=== PATIENT | female | born 2000 | race Caucasian/White ===

== ENCOUNTER 2021-11-23 06:27 | Emergency (ER) | payer SELFPAY ==
[~2021-11-23] VITALS: Ht 170.2 cm; Wt 113.4 kg
[2021-11-23 06:30] VITALS: BP 127/61
--- NOTE | 2021-11-23 06:43 | NUR ---
Dr. Uribe examining patient.
--- NOTE | 2021-11-23 06:43 | NUR ---
DR GALLAGHER EXAMINING PT AT BEDSIDE
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
--- NOTE | 2021-11-23 06:43 | NUR ---
PT TAKEN TO BED 11
[2021-11-23 07:01] VITALS: BP 127/61
--- NOTE | 2021-11-23 07:01 | NUR ---
Patient discharged with v/s stable. Written and verbal after care instructions given and explained. Patient verbalized understanding. Ambulatory with steady gait. All questions addressed prior to discharge. Advised to follow up with PMD.
== END 2021-11-23 07:01 | disposition home or self-care (01) ==
LOC: MED 06:27
DX: S29.019A Strain of muscle and tendon of unspecified wall of thorax, initial encounter (principal); S00.03XA Contusion of scalp, initial encounter; S00.83XA Contusion of other part of head, initial encounter; S20.219A Contusion of unspecified front wall of thorax, initial encounter; Y04.2XXA Assault by strike against or bumped into by another person, initial encounter; Y93.89 Activity, other specified; Y92.89 Other specified places as the place of occurrence of the external cause; Y99.8 Other external cause status
CPT/HCPCS: 96374; 99283; 99285